=== PATIENT | female | born 1935 | race Caucasian/White ===

== ENCOUNTER 2017-06-11 13:36 | Observation (INO) | payer MEDICARE ==
[~2017-06-11] VITALS: Ht 162.6 cm; Wt 82.3 kg
[~2017-06-11 13:36] MED LIST: ALEN70TA5 PO; AMLO10TA2 PO; LEVO50TA PO; MELA1TAB22 PO; PHENYLEPHRINE 10 MG/ML ONE; PRAS1TAB PO; UBID1CAP43 PO; cognitex PO
[2017-06-11] MEDS ORDERED: LACTATED RINGERS 1,000 ML IV SCH (13:49)
[2017-06-11] MEDS ORDERED: GLYCOPYRROLATE 0.2MG/1ML, 5ML ONE (14:12)
[2017-06-11] MEDS ORDERED: SUCCINYLCHOLINE 20 MG/ML, 10ML ONE (14:12)
[2017-06-11] MEDS ORDERED: PROPOFOL 10 MG/ML, 20ML ONE (14:12)
[2017-06-11] MEDS ORDERED: ROCURONIUM 10 MG/ML ONE (14:12)
[2017-06-11] MEDS ORDERED: LIDOCAINE-MPF 2% ,5ML ONE ×2 (14:12→18:04)
[2017-06-11] MEDS ORDERED: DEXAMETHASONE 4 MG/ML, 1ML ONE (14:12)
[2017-06-11] MEDS ORDERED: NEOSTIGMINE 1 MG/ML, 10ML ONE (14:12)
[2017-06-11] MEDS ORDERED: CEFAZOLIN 1,000 MG ONE (14:12)
[2017-06-11] MEDS ORDERED: ONDANSETRON 2MG/ML, 2ML ONE (14:12)
[2017-06-11] MEDS ORDERED: FENTANYL PF 100 MCG/2ML ONE ×3 (14:12→18:12)
[2017-06-11] MEDS ORDERED: BUPIVACAINE/PF 0.5% ONE (14:59)
[2017-06-11] MEDS ORDERED: PAPAVERINE 30 MG/ML, 2ML ONE (14:59)
[2017-06-11] MEDS ORDERED: PROTAMINE SULFATE 10 MG/ML, 5ML ONE (14:59)
[2017-06-11] MEDS ORDERED: HEPARIN 1,000 UNITS/ML, 10ML ONE (15:00)
[2017-06-11] MEDS ORDERED: EPINEPHRINE 1 MG/ML, 1ML ONE (15:00)
[2017-06-11] MEDS ORDERED: BACITRACIN 50,000 UNIT ONE (15:00)
[2017-06-11] MEDS ORDERED: THROMBIN 20,000 UNIT VIAL TP ONE (15:00)
[2017-06-11] MEDS ORDERED: MIDAZOLAM 1 MG/ML, 2ML ONE (16:29)
[2017-06-11] MEDS ORDERED: ONDANSETRON 2MG/ML, 2ML IVPush PRN (17:30)
[2017-06-11] MEDS ORDERED: ACETAMINOPHEN 325 MG TABLET PO PRN (17:30)
[2017-06-11] MEDS ORDERED: MIDAZOLAM 1 MG/ML, 2ML IV PRN (17:30)
[2017-06-11] MEDS ORDERED: HYDROmorphone 1 MG/ML, 1ML IV PRN (17:30)
[2017-06-11] MEDS ORDERED: ALBUTEROL/IPRATROPIUM 2.5MG/0.5MG, 3 ML NPPB PRN (17:30)
[2017-06-11] MEDS ORDERED: OXYcodone 5 MG/5 ML ORAL.SOL UDC PO PRN (17:30)
[2017-06-11] MEDS ORDERED: FENTANYL PF 100 MCG/2ML IV PRN (17:30)
[2017-06-11] MEDS ORDERED: EPHEDRINE 50 MG/ML, 1ML IVPush PRN (17:30)
[2017-06-11] MEDS ORDERED: hydrALAzine 20 MG/ML, 1ML IV PRN (17:30)
[2017-06-11] MEDS ORDERED: PROMETHAZINE 25 MG/ML, 1ML IV PRN (17:30)
[2017-06-11] MEDS ORDERED: MEPERIDINE/PF 25MG/0.5ML IVPush PRN (17:30)
[2017-06-11] MEDS ORDERED: LORazepam 2 MG/ML, 1ML IVPush PRN (17:30)
[2017-06-11] MEDS ORDERED: LABETALOL 5MG/ML, 20ML IV PRN (17:30)
[2017-06-11] MEDS ORDERED: DIAZEPAM 5 MG/ML, 2ML IVPush PRN (17:30)
[2017-06-11] MEDS ORDERED: ACETAMINOPHEN 650 MG/20.3 ML UDC ONE (19:56)
[2017-06-11] MEDS ORDERED: OXYcodone 5 MG/5 ML ORAL.SOL UDC ONE (19:57)
[2017-06-11] MEDS: ASPIRIN 325 MG TABLET EC PO SCH (21:51)
[2017-06-12 00:05] VITALS: BP 133/67
[2017-06-12] MEDS: POTASSIUM CHLORIDE 20 MEQ in D5%-0.45% NACL 1,000 ML IV SCH ×3 (00:10→21:16)
[2017-06-12] MEDS: CEFAZOLIN PMX 1GM/50ML 50 ML IVPB SCH ×2 (00:10→08:09)
[2017-06-12] MEDS: HYDROcodone/APAP 5/325 TABLET PO PRN ×5 (00:11→20:08)
[2017-06-12 03:02] VITALS: BP 116/55
[2017-06-12] MEDS: ASPIRIN 325 MG TABLET EC PO SCH (06:04)
[2017-06-12] MEDS: LEVOTHYROXINE 50 MCG TABLET PO SCH (06:04)
[2017-06-12 06:52] VITALS: BP 126/73
[2017-06-12] MEDS: AMLODIPINE 5 MG TABLET PO SCH (08:09)
[2017-06-12 13:20] VITALS: BP 107/65
[2017-06-12 19:28] VITALS: BP 123/63
[2017-06-13 02:33] VITALS: BP 131/74
[2017-06-13] MEDS: HYDROcodone/APAP 5/325 TABLET PO PRN ×3 (04:02→15:36)
[2017-06-13] MEDS: LEVOTHYROXINE 50 MCG TABLET PO SCH (05:45)
[2017-06-13] MEDS: ASPIRIN 325 MG TABLET EC PO SCH (05:45)
[2017-06-13 06:51] VITALS: BP 109/65
[2017-06-13] MEDS: AMLODIPINE 5 MG TABLET PO SCH (09:00)
[2017-06-13 13:53] VITALS: BP 105/59
[2017-06-13] MEDS ORDERED: ACET1TAB64 PO (15:12)
== END 2017-06-13 16:38 | disposition home or self-care (01) ==
LOC: ORIP 13:36 → INTOOBSV 13:36 → 4NOR 20:50 → DCLOUNGE 06-13 16:18
PROVIDERS: ADMIT Surgery; ATTEND Surgery
DX: I65.22 Occlusion and stenosis of left carotid artery (principal); H54.7 Unspecified visual loss; E03.9 Hypothyroidism, unspecified; E78.5 Hyperlipidemia, unspecified; I10 Essential (primary) hypertension; G47.00 Insomnia, unspecified; M81.0 Age-related osteoporosis without current pathological fracture; E66.3 Overweight; H91.90 Unspecified hearing loss, unspecified ear; Z85.828 Personal history of other malignant neoplasm of skin; Z86.73 Personal history of transient ischemic attack (TIA), and cerebral infarction without residual deficits; Z90.710 Acquired absence of both cervix and uterus
CPT/HCPCS: 35301; 36415; 86850; 86900; 92526; 92610; 96365; 96375; C1729; C1781; G0378; J0171; J0330; J0690; J1100; J1644; J2250; J2370; J2405; J2704; J2710; J2720; J3010; J3480; J3490; J7120; J2440

== ENCOUNTER → 2018-05-23 | Outpatient (CLI) | payer MEDICARE ==
[~2018-05-23] MED LIST changes: +ACET1TAB64 PO; -AMLO10TA2 PO; +AMLO10TA6 PO; -PHENYLEPHRINE 10 MG/ML ONE
== END | disposition home or self-care (01) ==
LOC: CFH 12:10
PROVIDERS: ATTEND Family Medicine
DX: Z13.820 Encounter for screening for osteoporosis (principal); M81.0 Age-related osteoporosis without current pathological fracture
CPT/HCPCS: 77080